=== PATIENT | male | born 1990 | race African-American/Black ===

== ENCOUNTER 2016-09-14 17:04 | Emergency (ER) | payer SELFPAY ==
[~2016-09-14] VITALS: Ht 175.3 cm; Wt 75.0 kg
[~2016-09-14 17:04] MED LIST: AUGM875T PO
[2016-09-14 17:06] VITALS: BP 129/77; PULSE 58; RESP 12; TEMP 98.1; O2SAT 99
[2016-09-14] MEDS ORDERED: PROPARACAINE HCL 0.5% OPHT SOLN 15 ML BTL EACH EYE ONE (18:00)
[2016-09-14] MEDS ORDERED: POLY10O LEFT EYE (18:14)
--- NOTE | 2016-09-14 18:20 | PD ---
HPI Chief Complaint: Eye Problems/Injury Time Seen by Provider: 18:15 Travel History International Travel<30 days: No Contact w/Intl Traveler<30days: No Traveled to known affect area: No History of Present Illness HPI 26-year-old male that presents to the ED for evaluation of irritation to the left eye. Patient has had this for the past 6 days. Per patient he doesn't not this is related to an infection versus something that he got in his eye. He denies putting anything on his eye. He denies wearing contacts or glasses. He has never and like this before. Per patient has no blurry vision or double vision. Per patient the eye weeks out a lot with crusty some yellow discharge. He denies any cough or runny nose. No problems with the right eye. He states that the pain is 7 out of 10. No neck pain. No fevers chills or sweats. No history of eye problems. No recent surgeries. PFSH Past Medical History Asthma: Yes Immunizations Current: Yes Social History Alcohol Use: No Tobacco Use: No Substance Use: No Allergies-Medications (Allergen,Severity, Reaction): Coded Allergies: No Known Allergies (Unverified , 09/14/16) Reported Meds & Prescriptions Reported Meds & Active Scripts Active Polytrim Opth Drops (Polymyxin/Trimethoprim Sulfate) 10,000-0.1 Unit/Ml-% Soln 1 Drop LEFT EYE Q6HR 7 Days Review of Systems Except as stated in HPI: all other systems reviewed are Neg Physical Exam Narrative GENERAL: SKIN: Warm and dry. HEAD: Atraumatic. Normocephalic. EYES: Pupils equal and round 4 mm reactive to light and accommodation. No scleral icterus. No injection or drainage. EOM intact bilaterally. Peripheral vision intact bilaterally. No sign of obvious foreign body. Patient does have discharge coming from the medial aspect of the left eye. No deformity noted on the right eye. Patient does have conjunctival irritation. Fluorescein stain revealed no sign of scratch or ulceration. No obvious deformity noted. No foreign body noted again. Ophthalmic exam reveals no sign of papilledema or vessel disease. ENT: No nasal bleeding or discharge. Mucous membranes pink and moist. NECK: Trachea midline. No JVD. CARDIOVASCULAR: Regular rate and rhythm. RESPIRATORY: No accessory muscle use. Clear to auscultation. Breath sounds equal bilaterally. Data Data Last Documented VS Vital Signs Date Time Temp Pulse Resp B/P Pulse Ox O2 Delivery O2 Flow Rate FiO2 09/14/16 17:06 98.1 58 12 129/77 99 Orders Proparacaine 0.5% Opth Soln (Alcaine 0.5 (09/14/16 18:00) MDM Medical Decision Making Medical Screen Exam Complete: Yes Emergency Medical Condition: Yes Medical Record Reviewed: Yes Differential Diagnosis Bacterial conjunctivitis versus viral conjunctivitis versus normal exam Narrative Course 26-year-old male that presents to the ED for evaluation of left eye irritation. Patient was properly examined and was found to have signs and symptoms consistent with appears to be likely bacterial conjunctivitis. I do not see any sign of foreign body. Patient was reassured. Patient will be treated for this with Polytrim be drops. Patient had complete resolution of the pain with proparacaine drops. Patient was told that he needs to take Motrin or Tylenol for pain. Watch the crusty some discharge from the eyes as needed. Follow up closely with lift slab operator if no improvement. See ED worsening symptoms. Diagnosis Primary Impression: Conjunctivitis Qualified Code: H10.32 - Acute bacterial conjunctivitis of left eye Patient Instructions: General Instructions Departure Forms: School Release, Please excuse from school until (free text option): Please excuse patient from home work or testing until 09/17/16. Patient having a severe infection to his left eye to requires rest as well as medical treatment. Tests/Procedures Additional Instructions: Take medication as prescribed. Warm compresses. Motrin or Tylenol for pain. Follow-up with PCP. See ED worsening symptoms. Scripts Polymyxin B-Trimethoprim Opth Drops (Polytrim Opth Drops)10,000-0.1 Unit/Ml-% Soln1 Drop LEFT EYE Q6HR 7 Days Ref 0 Prov:Jeremy Santos MD 09/14/16 Disposition: 01 DISCHARGE HOME Condition: Stable Hang Alegre Sep 14, 2016 18:20
== END 2016-09-14 19:08 | disposition home or self-care (01) ==
LOC: NEPB 17:04
DX: H10.32 Unspecified acute conjunctivitis, left eye (principal); J45.909 Unspecified asthma, uncomplicated
CPT/HCPCS: 99282

== ENCOUNTER 2017-09-21 17:27 | Emergency (ER) | payer OTHER ==
[2017-09-21] MEDS: KETOROLAC TROMETHAMINE 60 MG/2 ML (IM) VIAL IM (19:39)
[2017-09-21] MEDS: PENICILLIN V POTASSIUM 500 MG TAB PO (19:51)
== END 2017-09-21 20:05 | disposition home or self-care (01) ==
LOC: PHEFT 17:27
DX: K08.89 Other specified disorders of teeth and supporting structures (principal); J45.909 Unspecified asthma, uncomplicated; Z79.899 Other long term (current) drug therapy
CPT/HCPCS: 96372; 99284-25

== ENCOUNTER 2018-01-28 08:55 | Emergency (ER) | payer OTHER ==
[~2018-01-28] VITALS: Ht 175.3 cm; Wt 67.1 kg
[~2018-01-28 08:55] MED LIST changes: -AUGM875T PO; +IBUP1TAB7 PO; +PENI500T PO; +POLY10O LEFT EYE
[2018-01-28 08:58] VITALS: BP 120/59; PULSE 66; RESP 16; TEMP 98.1; O2SAT 100
[2018-01-28] MEDS ORDERED: AMOX500C PO (09:27)
--- NOTE | 2018-01-28 09:27 | PD ---
HPI Chief Complaint: ENT Complaint Time Seen by Provider: 09:08 Travel History International Travel<30 days: No Contact w/Intl Traveler<30days: No Traveled to known affect area: No History of Present Illness HPI 27-year-old male here with sore throat 1-2 weeks. Subjective fever. No difficulty swallowing. No change in voice. Symptom severity is moderate. No sick contacts or foreign travel. No other symptoms. PFSH Past Medical History Hx Anticoagulant Therapy: No Asthma: Yes Diabetes: No Diminished Hearing: No Immunizations Current: Yes Tetanus Vaccination: > 5 Years Influenza Vaccination: No Past Surgical History Surgical History: No Previous Surgery Social History Alcohol Use: No Tobacco Use: No Substance Use: No Allergies-Medications (Allergen,Severity, Reaction): Coded Allergies: No Known Allergies (Unverified Adverse Reaction, Unknown, 01/28/18) Reported Meds & Prescriptions Reported Meds & Active Scripts Active No Active Prescriptions or Reported Medications Review of Systems Except as stated in HPI: all other systems reviewed are Neg General / Constitutional: Positive: Fever Eyes: No: Visual changes HENT: Positive: Sore Throat Cardiovascular: No: Chest Pain or Discomfort Respiratory: No: Shortness of Breath Gastrointestinal: No: Abdominal Pain Genitourinary: No: Dysuria Physical Exam Narrative GENERAL: Alert and well-appearing 27-year-old male. SKIN: Warm and dry. No rash HEAD: Normocephalic. EYES: No injection or drainage. ENT: Notable pharyngeal erythema with mild to moderate tonsillar hypertrophy with exudate. Uvula is midline. Airways patent. Normal phonation NECK: Supple, trachea midline. Mild submandibular lymphadenopathy. CARDIOVASCULAR: Regular rate and rhythm without murmurs, gallops, or rubs. RESPIRATORY: Breath sounds equal bilaterally. No accessory muscle use. GASTROINTESTINAL: Abdomen soft, non-tender, nondistended. MUSCULOSKELETAL: No cyanosis, or edema. BACK: No CVA tenderness. Data Data Last Documented VS Vital Signs Date Time Temp Pulse Resp B/P (MAP) Pulse Ox O2 Delivery O2 Flow Rate FiO2 01/28/18 08:58 98.1 66 16 120/59 (79) 100 MDM Medical Decision Making Medical Screen Exam Complete: Yes Emergency Medical Condition: Yes Differential Diagnosis Strep pharyngitis, viral pharyngitis, mononucleosis Narrative Course 27-year-old female here with pharyngitis. He is nontoxic appearing. She will be treated with amoxicillin. Diagnosis Primary Impression: Pharyngitis Qualified Codes: J02.9 - Acute pharyngitis, unspecified Referrals: Primary Care Physician Additional Instructions: Ibuprofen 800 mg every 6 hours as needed for pain and fever. Drink plenty of fluids. Antibiotics as directed. Scripts Amoxicillin (Amoxicillin) 500 Mg Cap 500 MG PO BID for Infection for 10 Days, #20 CAP 0 Refills Prov: Debby Junior 01/28/18 Disposition: 01 DISCHARGE HOME Condition: Stable Debby Junior January 28, 2018 09:27
== END 2018-01-28 09:35 | disposition home or self-care (01) ==
LOC: PHEFT 08:55
DX: J02.9 Acute pharyngitis, unspecified (principal); J45.909 Unspecified asthma, uncomplicated
CPT/HCPCS: 99283